=== PATIENT | female | born 1945 | race Caucasian/White ===

== ENCOUNTER → 2017-11-27 | Outpatient (CLI) | payer OTHER, BC ==
--- NOTE | 2017-11-27 13:53 | RAD ---
Indication: Short of air. Technique: Two-view chest radiograph was obtained. No comparison is available. Findings: The lungs are clear. There is no pleural effusion. The heart is not enlarged. There is no heart failure. There is atheromatous disease in the thoracic aorta. There are mild degenerative changes in the spine. Impression: No acute thoracic findings.
== END | disposition home or self-care (01) ==
LOC: PMG 13:20
PROVIDERS: ATTEND Physician Assistant Medical
DX: R06.02 Shortness of breath (principal); I70.0 Atherosclerosis of aorta
CPT/HCPCS: 71046

== ENCOUNTER → 2017-12-10 | Outpatient (CLI) | payer MEDICARE ==
--- NOTE | 2017-12-10 18:04 | CARD ---
MR#: [id number] Date of Study: 12/10/2017 Ordering Physician: MIGUELINA MILLIGAN, Referring Physician: Aurora GAMEZ: Rao Augustin [facility] APPROVED REPORT EXAM: Two-dimensional and M-mode echocardiogram with Doppler and color Doppler. Other Information Quality : GoodHR: 100bpm INDICATION Dyspnea 2D DIMENSIONS Left Atrium(2D)3.5 (1.6-4.0cm)IVSd1.0 (0.7-1.1cm) Aortic Root(2D)2.6 (2.0-3.7cm)LVDd3.9 (3.9-5.9cm) LVOT Diameter1.8 (1.8-2.4cm)PWd1.0 (0.7-1.1cm) LVDs2.9 (2.5-4.0cm)FS (%) 24.8 % SV31.0 mlLVEF(%)50.0 (>50%) Aortic Valve AoV Peak Ervin.165.7cm/sAoV VTI35.2cm AO Peak GR.11.0mmHgLVOT Peak Ervin.145.5cm/s AO Mean GR.7mmHgAVA (VMAX)2.16cm2 Mitral Valve MV E Vytibmfw14.3cm/sMV E Peak Gr.167mmHg MV DECEL [id number] A Iabtczfm615.9cm/s E/A Ratio0.6 Pulmonary Valve PV Peak Hxznmrkt376.8cm/sPV Peak Grad.9mmHg Tricuspid Valve TR P. Yazzzlgd126uw/sRAP WSEGVZYJ3dsWw TR Peak Gr.83cdJgAIGO39iwUe Pulmonary Vein S1 Fgykxqlj82.4cm/sD2 Rufdxsiu73.5cm/s LEFT VENTRICLE The left ventricle is normal size. Mild proximal septal thickening is noted. Left ventricle systolic function is normal. The Ejection Fraction is 55-60%. There is normal LV segmental wall motion. Transm itral Doppler flow pattern is Grade I-abnormal relaxation pattern. RIGHT VENTRICLE The right ventricle is normal size. The right ventricular systolic function is normal. ATRIA The left atrium size is normal. The right atrium size is normal. The interatrial septum is intact wit h no evidence for an atrial septal defect or patent foramen ovale as noted on 2-D or Doppler imaging. AORTIC VALVE The aortic valve is thickened but opens well. Doppler and Color Flow revealed trace aortic regurgitat ion. There is no significant aortic valvular stenosis. There is no aortic valvular vegetation. MITRAL VALVE The mitral valve is thickened but opens well. There is no evidence of mitral valve prolapse. There is no mitral valve stenosis. Doppler and Color Flow revealed no mitral valve regurgitation noted. TRICUSPID VALVE The tricuspid valve is normal in structure and function. Doppler and Color Flow revealed mild tricusp id regurgitation. There is no tricuspid valve prolapse or vegetation. There is no tricuspid valve deborah nosis. PULMONIC VALVE Pulmonic valve structure was unable to be visualized. Doppler and Color Flow revealed trace pulmonic valvular regurgitation. There is no pulmonic valvular stenosis. GREAT VESSELS The aortic root is normal in size. The IVC is normal in size and collapses <50% with inspiration. PERICARDIAL EFFUSION There is no pleural effusion. There is no evidence of significant pericardial effusion. Critical Notification Critical Value: No <Conclusion> The left ventricle is normal size. Left ventricle systolic function is normal. The Ejection Fraction is 55-60%. Mild proximal septal thickening is noted. There is no significant aortic valvular stenosis. Doppler and Color Flow revealed trace aortic regurgitation. Doppler and Color Flow revealed no mitral valve regurgitation noted. Doppler and Color Flow revealed mild tricuspid regurgitation. Signed by : Adebayo Arguello MD Electronically Approved : 12/10/2017 18:03:59
== END | disposition home or self-care (01) ==
LOC: ECHO 13:19
PROVIDERS: ATTEND Physician Assistant Medical
DX: R06.09 Other forms of dyspnea (principal); I08.8 Other rheumatic multiple valve diseases
CPT/HCPCS: 93306

== ENCOUNTER → 2018-05-02 | Outpatient (CLI) | payer MEDICARE, OTHER ==
--- NOTE | 2018-05-02 11:15 | RAD ---
Left knee, 3 views, 04/22/2018: HISTORY: Knee pain No previous imaging is available for comparison purposes. A total knee prosthesis is in place. It appears to be in satisfactory position with no definite evidence of loosening or infection. Several tiny periarticular calcifications are noted. No fracture or dislocation is evident. IMPRESSION: 1. A left total knee prosthesis is in place. 2. No acute bony abnormality is detected. Electronically signed by: Tucker Jasmine MD (05/02/2018 11:11 AM) [facility]
== END | disposition home or self-care (01) ==
LOC: PMG 08:40
PROVIDERS: ATTEND Physician Assistant Medical
DX: M25.562 Pain in left knee (principal); Z96.652 Presence of left artificial knee joint
CPT/HCPCS: 73562

== ENCOUNTER 2021-03-12 16:55 | Emergency (ER) | payer MEDICARE ==
[~2021-03-12] VITALS: Ht 154.9 cm; Wt 56.8 kg
--- NOTE | 2021-03-12 18:12 | PHYS DOC ---
Past History Past Medical History: Diabetes, Hypertension, Other Additional Past Medical Histor: Lupus (GRANT HENDRICKS APRN) Past Surgical History: Cholecystectomy Additional Past Surgical Histo: L knee replacement (GRANT HENDRICKS APRN) Alcohol Use: None (GRANT HENDRICKS APRN) General Adult EDM: Chief Complaint: LOWER EXT PAIN HPI: HPI: Patient is a 75-year-old female who presents with posterior left knee swelling, redness, pain. Patient states "I got the Paresh & Paresh vaccine on the seventh". Patient denies chest pain, shortness of breath. Patient is able to ambulate. Pedal pulses are intact. Patient denies history of DVT. Patient has history of hypertension (GRANT HENDRICKS APRN) Review of Systems: Review of Systems: Constitutional: Denies fever or chills Eyes: Denies change in visual acuity HENT: Denies nasal congestion or sore throat Respiratory: Denies cough or shortness of breath Cardiovascular: Denies chest pain or edema GI: Denies abdominal pain, nausea, vomiting, bloody stools or diarrhea : Denies dysuria Musculoskeletal: Reports posterior, knee pain Integument: Posterior knee, swelling, redness, warmth Neurologic: Denies headache, focal weakness or sensory changes Endocrine: Denies polyuria or polydipsia Lymphatic: Denies swollen glands Psychiatric: Denies depression or anxiety (GRANT HENDRICKS APRN) Allergies: Allergies: Allergies Coded Allergies Type Severity Reaction Last Updated Verified No Known Drug Allergies 03/12/21 No (GRANT HENDRICKS APRN) Physical Exam: PE: Constitutional: Well developed, well nourished, no acute distress, non-toxic appearance. [] HENT: Normocephalic, atraumatic, bilateral external ears normal, oropharynx moist, no oral exudates, nose normal. [] Eyes: PERRLA, EOMI, conjunctiva normal, no discharge. [] Neck: Normal range of motion, no tenderness, supple, no stridor. [] Cardiovascular:Heart rate regular rhythm, no murmur [] Lungs & Thorax: Bilateral breath sounds clear to auscultation [] Abdomen: Bowel sounds normal, soft, no tenderness, no masses, no pulsatile masses. [] Skin: Warm, swelling, redness to posterior knee Back: No tenderness, no CVA tenderness. [] Extremities: No tenderness, no cyanosis, no clubbing, ROM intact, no edema. [] Neurologic: Alert and oriented X 3, normal motor function, normal sensory fu nction, no focal deficits noted. [] Psychologic: Affect normal, judgement normal, mood normal. [] (GRANT HENDRICKS APRN) Current Patient Data: Vital Signs: Vital Signs Date Time Temp Pulse Resp B/P (MAP) Pulse Ox O2 Delivery O2 Flow Rate FiO2 03/12/21 17:51 97.8 105 16 164/72 (102) 97 Room Air (GRANT HENDRICKS APRN) EKG: EKG: [] (GRANT HENDRICKS APRN) Radiology/Procedures: Radiology/Procedures: []LEFT LEG VENOUS DOPPLER STUDY: Clinical indications: Posterior left knee swelling and redness.. Findings: Duplex sonography (including miller scale evaluation and color flow and waveform spectral analysis) of the proximal aspect of the greater saphenous vein and the proximal aspect of the profunda femoral vein and the entire length of the common femoral and superficial femoral and popliteal veins and the tibioperoneal trunk and the proximal aspect of the posterior tibial and peroneal veins of the left leg was performed. One of the paired peroneal veins is not completely compressible due to partial thrombosis. Normal compressibility, augmentation of color Doppler flow after calf compression, and respiratory variation of Doppler flow is seen within the other veins. Thus, there are no sonographic findings of deep venous thrombosis within these veins. Impression: Partial thrombosis seen within one of the left peroneal veins. There is a 3.4 cm complex fluid collection of the posterior left knee most likely represents a complex Willson's cyst. Electronically signed by: Milton Pettit MD (03/12/2021 7:42 PM) [id number] (GRANT HENDRICKS APRN) Heart Score: C/O Chest Pain: No Risk Factors: Risk Factors: DM, Current or recent (<one month) smoker, HTN, HLP, family history of CAD, obesity. Risk Scores: Score 0 - 3: 2.5% MACE over next 6 weeks - Discharge Home Score 4 - 6: 20.3% MACE over next 6 weeks - Admit for Clinical Observation Score 7 - 10: 72.7% MACE over next 6 weeks - Early Invasive Strategies (GRANT HENDRICKS APRN) Course & Med Decision Making: Course & Med Decision Making Pertinent Labs and Imaging studies reviewed. (See chart for details) [] Patient has posterior right knee swelling, redness, pain since yesterday. Patient states that she received the Paresh & Paresh vaccine on the seventh and is concerned she has a blood clot. Patient's denying chest pain, shortness of breath. Patient denies history of DVTs or blood clots. Pedal pulses are intact. Ultrasound of left posterior knee ordered to rule out DVT. Ultrasound shows partial thrombosis seen within one of the left peroneal veins. Prescription written for Xarelto. Patient instructed to follow-up with her PCP early this week for Xarelto management. Patient given 1 dose of Xarelto in the emergency room. Explained follow-up instructions to patient and precautions. Patient is appreciative and okay with discharge plan. Patient will follow up with her PCP tomorrow or Saturday. Patient care transferred to Dr. Daniels (GRANT HENDRICKS APRN) Sunni Disclaimer: Sunni Disclaimer: This electronic medical record was generated, in whole or in part, using a voice recognition dictation system. (GRANT HENDRICKS APRN) Attending Co-Sign The patient was seen and interviewed as well as examined at the bedside. The [place] rt was reviewed. The case was discussed. Agree with the plan of care. (EPI DANIELS DO) Departure Departure: Impression: Primary Impression: Left peroneal vein thrombosis Disposition: HOME / SELF CARE / HOMELESS Condition: STABLE Referrals: MIGUELINA MILLIGAN (PCP) Patient Instructions: Deep Vein Thrombosis Additional Instructions: You were seen in the emergency room for pain, swelling to left posterior knee. The ultrasound was positive for a peroneal vein thrombosis. I am going to send you home with Xarelto which is a blood thinner. You will take the Xarelto, 15 mg, twice a day, for 21 days. Please take as directed. Please follow-up with your PCP later this week for further management and instructions for Xarelto. Please return to the emergency room with worsening symptoms or concerns. EMERGENCY DEPARTMENT GENERAL DISCHARGE INSTRUCTIONS Thank you for coming to [facility] (ED) today and trusting us with you care. We trust that you had a positivie experience in our Emergency Department. If you wish to speak to the department management, you may call the director at [phone]. YOUR FOLLOW UP INSTRUCTIONS ARE FOLLOWS: 1. Do you have a private Doctor? If you do not have a private doctor, please ask for a resource list of physicians or clinics that may be able to assist you with follow up care. 2. The Emergency Physician has interpreted your x-rays. The X-Ray specialist will also review them. If there is a change in the findings, you will be notified in 48 hours when at all possible. 3. A lab test or culture has been done, your results will be reviewed and you will be notified if you need a change in treatment. ADDITIONAL INSTRUCTIONS AND INFORMATION: 1. Your care today has been supervised by a physician who is specially trained in emergency care. Many problems require more than one evaluation for a complete diagnosis and treatment. We recommend that you schedule your follow up appointment as recommended to ensure complete treatment of you illness or injury. If you are unable to obtain follow up care and continue to have a problem, or if your condition worsens, we recommend that you return to the ED. 2. We are not able to safely determine your condition over the phone nor are we able to give sound medical advice over the phone. For these safety reasons, if you call for medical advice we will ask you to come to the ED for further evaluation. 3. If you have any questions regarding these discharge instructions please call the ED at [phone]. SAFETY INFORMATION: In the interest of safety, wellness, and injury prevention; we encourage you to wear your sealbelt, if you smoke; quite smoking, and we encourage family to use a protec tive helmet for bicycling and other sporting events that present an increased risk for head injury. IF YOUR SYMPTOMS WORSEN OR NEW SYMPTOMS DEVELOP, OR YOU HAVE CONCERNS ABOUT YOUR CONDITION; OR IF YOUR CONDITION WORSENS WHILE YOU ARE WAITING FOR YOUR FOLLOW UP APPOINTMENT; EITHER CONTACT YOUR PRIMARY CARE DOCTOR, THE PHYSICIAN WHOSE NAME AND NUMBER YOU WERE GIVEN, OR RETURN TO THE ED IMMEDIATELY. Scripts Rivaroxaban (XARELTO) 15 Mg Tablet 15 MG PO BID for anticoagulant for 21 Days, #42 TAB Please take ONE by mouth TWO times a day. Prov: GRANT HENDRICKS APRN 03/12/21 GRANT HENDRICKS APRN Mar 12, 2021 18:12 EPI DANIELS DO Mar 13, 2021 06:13
--- NOTE | 2021-03-12 19:45 | RAD ---
LEFT LEG VENOUS DOPPLER STUDY: Clinical indications: Posterior left knee swelling and redness.. Findings: Duplex sonography (including miller scale evaluation and color flow and waveform spectral jamison lysis) of the proximal aspect of the greater saphenous vein and the proximal aspect of the profunda f emoral vein and the entire length of the common femoral and superficial femoral and popliteal veins a nd the tibioperoneal trunk and the proximal aspect of the posterior tibial and peroneal veins of the left leg was performed. One of the paired peroneal veins is not completely compressible due to partia l thrombosis. Normal compressibility, augmentation of color Doppler flow after calf compression, and respiratory variation of Doppler flow is seen within the other veins. Thus, there are no sonographic findings of deep venous thrombosis within these veins. Impression: Partial thrombosis seen within one of the left peroneal veins. There is a 3.4 cm complex fluid collection of the posterior left knee most likely represents a comple x Willson's cyst. Electronically signed by: Milton Pettit MD (03/12/2021 7:42 PM) [id number]
[2021-03-12] MEDS ORDERED: RIVA15TA PO (20:06)
[2021-03-12] MEDS ORDERED: RIVAROXABAN 15 MG TABLET. PO ONE (20:15)
[2021-03-12 20:40] LABS: BASO % 0 % (0-3); EOS % 0 % (0-3); HEMATOCRIT 32.9 % (36.0-47.0); HEMOGLOBIN 10.8 g/dL (12.0-15.5); LYMPH # 0.8 x10^3/uL (1.0-4.8); LYMPH % 6 % (24-48); MEAN CORPUSCULAR HEMOGLOBIN 29 pg (25-35); MEAN CORPUSCULAR HGB CONC 33 g/dL (31-37); MEAN CORPUSCULAR VOLUME 90 fL (79-100); MONO # 1.8 x10^3/uL (0.0-1.1); MONO % 13 % (0-9); NEUT # 10.9 x10^3uL (1.8-7.7); NEUT % 81 % (31-73); PLATELET COUNT 262 x10^3/uL (140-400); RED BLOOD COUNT 3.67 x10^6/uL (3.50-5.40); WHITE BLOOD COUNT 13.5 x10^3/uL (4.0-11.0)
[2021-03-12 21:00] VITALS: BP 160/70
--- NOTE | 2021-03-13 01:35 | EKG ---
[address] [address] Test Date: 2021-03-12 Test Time: 17:37:08 Pat Name: RAPHAEL LARIOS Department: Room: Gender: F [employer] Faculty Member: LUCINA : 1945 Requested By: GRANT HENDRICKS Order Number: [id number] Reading MD: Measurements Intervals [place] Rate: 99 P: -46 CT: 122 QRS: 64 QRSD: 90 T: 17 QT: 348 QTc: 452 Interpretive Statements SINUS RHYTHM NORMAL ECG RI6.02 No previous ECG available for comparison
== END 2021-03-12 21:07 | disposition home or self-care (01) ==
LOC: ER 16:55
DX: I82.452 Acute embolism and thrombosis of left peroneal vein (principal); E11.9 Type 2 diabetes mellitus without complications; I10 Essential (primary) hypertension
CPT/HCPCS: 36415; 85025; 85610; 85730; 93005; 93971; 99285